=== PATIENT | male | born 1980 | race Caucasian/White ===

== ENCOUNTER 2019-09-13 13:26 | Outpatient (CLI) | payer OTHER | END 2019-09-13 13:27 | disposition home or self-care (01) | LOC: RT 13:26 | PROVIDERS: ATTEND Student in an Organized Health Care Education/Training Program | DX: R06.2 Wheezing (principal) | CPT/HCPCS: 94010; 94727; 94729 ==

== ENCOUNTER 2020-05-26 07:32 | Day surgery (SDC) | payer OTHER ==
[~2020-05-26 07:32] MED LIST: cefTRIAXone 2 GM VIAL ONE
[2020-05-26] MEDS ORDERED: LACTATED RINGERS 1,000 ML IV ONE ×2 (07:58→09:31)
[2020-05-26] MEDS ORDERED: PROPOFOL 200 MG/20 ML VIAL IVP ONE (08:00)
[2020-05-26] MEDS ORDERED: LIDOCAINE-MPF 2% 5 ML VIAL ONE (08:00)
[2020-05-26] MEDS ORDERED: BUPIVACAINE 0.25% PF 30 ML VIAL ONE (08:05)
[2020-05-26] MEDS ORDERED: fentaNYL 100 MCG/2 ML VIAL ONE (08:26)
[2020-05-26] MEDS ORDERED: DEXAMETHASONE 4 MG/ML VIAL ONE (08:38)
[2020-05-26] MEDS ORDERED: ONDANSETRON 4 MG/2 ML VIAL ONE (08:38)
[2020-05-26] MEDS ORDERED: HYDROmorphone 0.5 MG/0.5 ML SYRINGE IVP PRN (08:43)
[2020-05-26] MEDS ORDERED: ONDANSETRON 4 MG/2 ML VIAL IVP PRN ×2 (08:43→09:26)
[2020-05-26] MEDS ORDERED: MORPHINE 2 MG/ML CARPUJECT IVP PRN (08:43)
[2020-05-26] MEDS ORDERED: ePHEDrine 50 MG/ML VIAL IVP PRN (08:43)
[2020-05-26] MEDS ORDERED: ATROPINE ABBOJECT 1 MG/10 ML SYRINGE IVP PRN (08:43)
[2020-05-26] MEDS ORDERED: NALOXONE 0.4 MG/ML VIAL IVP PRN (08:43)
[2020-05-26] MEDS ORDERED: fentaNYL 100 MCG/2 ML VIAL IVP PRN (08:43)
[2020-05-26] MEDS ORDERED: METOCLOPRAMIDE 10 MG/2 ML VIAL IVP PRN (08:43)
--- NOTE | 2020-05-26 08:43 | ANESTHESIA ---
Pre-Anesthesia VS, & Labs - Diagnosis RIght shoulder pain - Procedure right distal clavicle excision Vital Signs: Temp Pulse Resp BP Pulse Ox 36.2 C L 78 16 124/72 96 05/26/20 07:30 05/26/20 07:30 05/26/20 07:30 05/26/20 07:30 05/26/20 07:30 Height: 5 ft 9 in Weight (kg): 104.33 kg Body Mass Index: 34.0 BMI Classification: Obese - NPO >8 hours Home Medications and Allergies Home Medications: Ambulatory Orders Meloxicam [Mobic] 15 mg PO 05/21/20 Meloxicam [Mobic] 15 mg PO 05/21/20 Allergies/Adverse Reactions: Allergies Allergy/AdvReac Type Severity Reaction Status Date / Time No Known Drug Allergies Allergy Verified 05/21/20 11:57 Anes History & Medical History - Anesthetic History Anesthesia Complications: reports: No previous complications Family history of Anesthesia Complications: Denies Family history of Malignant Hyperthermia: Denies - Medical History Cardiovascular: reports: None Pulmonary: reports: None Gastrointestinal: reports: None Urinary: reports: None Musculoskeletal: reports: Other Endocrine/Autoimmune: reports: None Skin: reports: None Exam General: Alert, Oriented x3, Cooperative, No acute distress Dental: WNL Mouth Opening: Greater than 4 Fingerbreadths Neck Mobility: Normal Mallampati classification: I Thyromental Distance: 4-6 cm Respiratory: Lungs clear, Normal breath sounds, No respiratory distress, No accessory muscle use Cardiovascular: Regular rate, Normal S1, Normal S2, No murmurs Cognitive Status: Within normal limits Plan Anesthesia Type: General Consent for Procedure(s) Verified and Reviewed: Yes Code Status: Attempt Resuscitation ASA classification: 2-Mild systemic disease Is this case an emergency?: No
[2020-05-26] MEDS ORDERED: BUPIVACAINE 0.25% PF 30 ML VIAL SUBQ ONE (08:49)
[2020-05-26] MEDS ORDERED: LACTATED RINGERS 1,000 ML IV SCH (09:00)
[2020-05-26] MEDS ORDERED: oxyCODONE 5 MG TABLET PO PRN (09:26)
[2020-05-26] MEDS: HYDROmorphone 1 MG/ML CARPUJECT ONE ×2 (09:30→09:40)
[2020-05-26] MEDS ORDERED: KETOROLAC 30 MG/ML VIAL IVP STA (09:31)
--- NOTE | 2020-05-26 09:39 | OPERATIVE REPORT ---
Operative Report - Other Other Information/Narrative: Date of Surgery: May 26, 2020 Pre-Op Diagnosis: Right acromioclavicular joint osteoarthritis Procedure: Right open distal clavicle excision Postop Diagnosis: Same Primary Surgeon: Davion Nix Secondary Surgeon: None Complications: None EBL: 25ml IMPLANTS: None POSTOPERATIVE PLAN: 0-2 weeks-Sling at all times. Pendulum exercises 5 times per day. 2-6 weeks-Passive and active range of motion without limitations. 6-12 weeks-Gradually increase strengthening and activities EXAMINATION UNDER ANESTHESIA: ROM: full Anterior load and shift: Normal Posterior load and shift: Normal Inferior sulcus: Normal OPERATIVE FINDINGS: AC joint arthritis with capsular hypertrophy INDICATION FOR SURGERY: 40M with 6 months of pain in the AC joint associated with activity. There was no discrete injury. The pain is severe at times and limits his ability to be active. Direct palpation of the AC joint reproduces his symtpoms and his rotator cuff exam was completely normal. Imaging showed AC joint arthritis with significant edema on MRI . Nonoperative managment failed to resolve symptoms. The risks, benefits, and alternatives were discussed. Risks included pain, bleeding, infection, damage to nearby structures, lack of symptom relief, implant complications, stiffness, need for further surgeries, DVT, PE, stroke, and even . The patient signed a written consent form. PROCEDURE IN DETAIL: The patient was met in the preoperative holding on the day of the procedure. Operative extremity was signed. Consent was verified. The patient desired to proceed. The patient was brought to the operating room and surrendered to anesthesia. Once general anesthesia was obtained the patient was placed in the relaxed beach chair position. The shoulder was prepped and draped in the standard fashion. A surgical timeout was held to confirm the patient identity, procedure, procedure, laterality, allergies, images, and antibiotics. All were in agreement we proceeded. OPEN DISTAL CLAVICLE EXCISION: A 5 cm incision was made in line with the clavic le, centered over the acromioclavicular joint. Electrocautery was used to obtain hemostasis. Full-thickness skin flaps were made at the level of the fascia/joint capsule. A full-thickness longitudinal was made longitudinally to open the acromioclavicular joint. Electrocautery was used to dissect the joint capsule from the bony surfaces. 2 Homans were placed around the distal clavicle. Rongeur was used to debride the intra-articular disc. A 10 mm resection was measured and performed with a sagittal saw. Care was taken to ensure this cut was parallel to the joint surface. All sharp bony edges were rounded. A finger was placed with into the defect and the arm was adducted fully without any impingement in the joint. The joint was then irrigated copiously. A watertight capsular and fascial closure was performed with 0 Vicryl. The incision was closed with 2-0 Vicryl in the dermis and a running 3-0 Monocryl in the skin. Mastisol and Steri-Strips were applied. A sterile dressing and a sling was applied. The patient was awakened and transferred to the recovery room.
[2020-05-26] MEDS ORDERED: KETOROLAC 15 MG/ML VIAL ONE (09:41)
[2020-05-26 11:00] VITALS: BP 134/74
[2020-05-26] MEDS ORDERED: oxyCODONE 5 MG TABLET ONE (11:43)
--- NOTE | 2020-05-26 12:15 | ANESTHESIA POST OP EVALUATION ---
Anesthesia Post Eval - Post Anesthesia Eval Vitals: Last Vital Signs Temp 36.2 C L 05/26/20 10:15 Pulse 87 05/26/20 11:00 Resp 13 05/26/20 11:00 BP 134/74 H 05/26/20 11:00 Pulse Ox 97 05/26/20 11:00 CV Function Including HR & BP: positive: Stable Pain Control: positive: Satisfactory Nausea & Vomiting: positive: Negative Mental Status: positive: Patient Participates Respiratory Status: Airway Patent Hydration Status: Satisfactory Anesthesia Complications: positive: None
== END 2020-05-26 07:33 | disposition home or self-care (01) ==
LOC: SDS 07:32
PROVIDERS: ATTEND Orthopaedic Surgery
PROC: 0PB90ZZ Excision of Right Clavicle, Open Approach (ICD-10-PCS; principal; 2020-05-26 08:30)
DX: M19.011 Primary osteoarthritis, right shoulder (principal); E66.9 Obesity, unspecified; Z68.34 Body mass index [BMI] 34.0-34.9, adult
CPT/HCPCS: 23120; A9270; J1170; J7120

== ENCOUNTER 2022-02-24 14:05 | Outpatient (CLI) | payer OTHER ==
--- NOTE | 2022-02-25 08:57 | XRAY Report ---
PROCEDURE: Lumbar Spine 2 View INDICATIONS: LOW BACK PAIN TECHNIQUE: 2 views of the lumbar spine were acquired. COMPARISON: None. FINDINGS: Bones: 5 [id number] vertebrae are present. There is normal bony alignment. No vertebral body compression fractures. No suspicious bony lesions. Mild degenerative disc disease at L3-L4 and L4-L 5. Soft tissues: Overlying bowel gas pattern is normal. No suspicious soft tissue calcifications. Mod erate amount stool in proximal colon. IMPRESSION: Mild degenerative disc disease in lumbar spine. Reviewed by: Corby Davis MD on 02/25/2022 8:56 AM [facility] Approved by: Corby Davis MD on 02/25/2022 8:56 AM [facility] Station ID: [id number]
== END 2022-02-24 14:06 | disposition home or self-care (01) ==
LOC: DI 14:05
PROVIDERS: ATTEND Student in an Organized Health Care Education/Training Program
DX: M51.36 Other intervertebral disc degeneration, lumbar region (principal)